=== PATIENT | female | born 1990 | race Caucasian/White ===

== ENCOUNTER 2018-08-19 14:03 | Outpatient (CLI) | payer MEDICAID, OTHER ==
[~2018-08-19] VITALS: Ht 167.6 cm; Wt 99.6 kg
[~2018-08-19 14:03] MED LIST: AMOX500C2 PO; IBUP800T48 PO
[2018-08-19 14:15] VITALS: Ht 167.6 cm; Wt 99.6 kg
[2018-08-19 14:16] VITALS: BP 110/57; PULSE 86; RESP 20
--- NOTE | 2018-08-19 17:18 | PN ---
Triage Information Date/Time Reason for visit: DFM Weeks of Gestation 36 weeks and 5 days /Para Diabetes: none Hypertention: none Objective Vital Signs Date Temp Pulse Resp B/P (MAP) Pulse Ox O2 O2 Flow FiO2 Time Delivery Rate 08/19/18 97.9 86 20 110/57 Room Air 14:16 (74) Heart Rate: 130's Contractions: None Results/Medications Imaging Results There is a single live intrauterine gestation. Cardiac activity is present with 144 beats per minute. There is a vertex presentation. The placenta is right lateral. There is no evidence of placental abruption. There is a normal amount of amniotic fluid with an ZION = 11.1 cm. Biophysical profile: movement 2/2 tone 2/2. breathing 2/2 ZION 2/2 Total 12/31 RPTAT: AA . IMPRESSION: Normal biophysical profile. Disposition: Discharge Assessment/Plan 28 years old with single intrauterine at 36 weeks and 5 days with KATELIN of 09/11/2018 complaining of decreased movement. She denies nausea, vomiting, shortness of breath, chest pain, abdominal pain, headache, visual changes, vaginal bleeding or LOF. -FHR: No sign of metabolic acidosis- Category I -Contractions: None -Ultrasound performed: Normal amniotic fluid index. Biophysical profile 8 out of 8 -During triage observation. She states baby has been active. -Symptoms and sign of labor, preeclampsia, kick count discussed with patient, she voiced understanding. All of her questions answered. -Patient was discharged home in stable condition with the appropriate discharge instructions provided. I would like patient to have close follow-up with her primary physician or outpatient clinic in 1-2 days or return to triage for worsening symptoms or any other urgent concerns. KAYLA VILLALOBOS Aug 19, 2018 17:17
--- NOTE | 2018-08-19 17:39 | TRIAGE ---
OB Triage Datetime Report Generated by CPN: 08/19/2018 17:38 Datetime: 08/19/2018 17:15 Labor Evaluation Frequency: x4 Duration (sec)2399: 40-70 Quality: Mild Pattern: Normal: <= 5 Contractions in 10 Minutes Resting Tone [place]: Relaxed Heart Rate FHR Baseline Rate: 135 Monitor Mode: External US FHR Baseline Changes: No Baseline Change Variability: Moderate 6-25 bpm Accelerations: 15X15 Decelerations: None Category: Category I Pain Assessment Pain Scale: 0 Pain Presence: None/Denies Pain Type: N/A Pain Goal: 3 Vaginal Exam Membrane Status: Intact Datetime: 08/19/2018 17:14 Comments: Dr. Hadadian here in triage, stated pt may go home Datetime: 08/19/2018 17:12 Stage of : OB Triage Datetime: 08/19/2018 16:31 Labor Evaluation Frequency: x3 Monitor Mode: External Duration (sec)2399: 40-50 Quality: Mild Pattern: Normal: <= 5 Contractions in 10 Minutes Resting Tone [place]: Relaxed Heart Rate FHR Baseline Rate: 135 Monitor Mode: External US FHR Baseline Changes: No Baseline Change Variability: Moderate 6-25 bpm Accelerations: 15X15 Decelerations: None Category: Category I Pain Assessment Pain Scale: 0 Pain Presence: None/Denies Pain Type: N/A Pain Goal: 3 Datetime: 08/19/2018 16:00 Labor Evaluation Frequency: X3 Monitor Mode: External Duration (sec)2399: 40-60 Quality: Mild Pattern: Normal: <= 5 Contractions in 10 Minutes Resting Tone [place]: Relaxed Heart Rate FHR Baseline Rate: 135 Monitor Mode: External US FHR Baseline Changes: No Baseline Change Variability: Moderate 6-25 bpm Accelerations: 15X15 Decelerations: None Category: Category I Pain Assessment Pain Scale: 0 Pain Presence: None/Denies Pain Type: N/A Pain Goal: 3 Datetime: 08/19/2018 15:19 Comments: u/s in progress Datetime: 08/19/2018 15:10 Labor Evaluation Frequency: 2-15 Monitor Mode: External Duration (sec)2399: 40-80 Quality: Mild Pattern: Normal: <= 5 Contractions in 10 Minutes Resting Tone [place]: Relaxed Heart Rate FHR Baseline Rate: 155 Monitor Mode: External US FHR Baseline Changes: No Baseline Change Variability: Moderate 6-25 bpm Accelerations: 15X15 Decelerations: None Category: Category I Comments: Dr. Wolff at bedside to review strip, and assess pt, new order to observe pt for 1.5-2 hrs prior to d/c Pain Assessment Pain Scale: 0 Pain Presence: None/Denies Pain Type: N/A Pain Goal: 3 Datetime: 08/19/2018 15:00 Comments: Dr. Wolff was informed of pt's arrival to unit with c/o decrease movement. New o rder for NST and BPP Datetime: 08/19/2018 14:20 Stage of : OB Triage Temperature Route: Oral Datetime: 08/19/2018 14:19 Stage of : OB Triage Assessment Type: Triage Maternal Assessment Level of Consciousness: Fully Conscious DTR's/Clonus: DTRs 2+; No Clonus Headache: Denies Blurred Vision: No Respiratory Effort: Unlabored; Regular Rhythm; Equal Expansion Breath Sounds, Left: Clear and Equal Breath Sounds, Right: Clear and Equal Nausea/Vomiting: Denies RUQ Epigastric Pain: Denies Lower Extremities Edema: Bilateral Lower Extremities Degree: 1+ Upper Extremities Edema: None Facial Edema: None Temperature Route: Axillary Fall Risk Assessment History of Falling: (0) No Secondary Diagnosis: (0) No Ambulatory Aid: (0) Bedrest/Nurse Assist IV Therapy: (0) No Gait: (0) Normal/Bedrest/Immobile Mental Status: (0) Oriented to Own Ability Fall Score: 0 Fall Risk Score Definition: No Risk: No action required Pain Assessment Pain Scale: 0 Pain Presence: None/Denies Pain Type: N/A Pain Goal: 3 Datetime: 08/19/2018 14:17 Time of Arrival: 08/19/2018 13:57 EGA: 36.5 Arrived By: Ambulatory Arrived From: Home Chief Complaint: Decrease movement Movement: Decreased Rupture of Membranes: Denies Vaginal Bleeding: None Vaginal Discharge: Denies Recent Sexual Intercouse: Denies Abdominal Trauma: Not Applicable Patient Complaints: None Time Provider Notified: 08/19/2018 15:01 Provider Notified: Dr. Wolff Initial Plan: SUREKHA DIMAS
== END 2018-08-19 17:35 | disposition home or self-care (01) ==
LOC: L-D 14:03 → OBT 14:03
PROVIDERS: ATTEND Obstetrics & Gynecology
DX: O36.8130 Decreased fetal movements, third trimester, not applicable or unspecified (principal); Z3A.36 36 weeks gestation of pregnancy
CPT/HCPCS: 76818; Z7500; G0463

== ENCOUNTER 2018-09-02 05:50 | Outpatient (CLI) | payer MEDICAID ==
[~2018-09-02] VITALS: Ht 165.1 cm; Wt 101.7 kg
[2018-09-02] MEDS ORDERED: PNV11TAB PO (06:26)
[2018-09-02 06:27] VITALS: BP 109/66; PULSE 84; RESP 18; Ht 165.1 cm; Wt 101.7 kg
--- NOTE | 2018-09-02 09:06 | TRIAGE ---
OB Triage Datetime Report Generated by CPN: 09/02/2018 09:06 Datetime: 09/02/2018 08:41 Stage of : OB Triage Datetime: 09/02/2018 08:37 Stage of : OB Triage Datetime: 09/02/2018 08:24 Stage of : OB Triage Datetime: 09/02/2018 08:23 Labor Evaluation Frequency: 9-10 Monitor Mode: External Duration (sec)2399: 50-60 Quality: Mild Pattern: Normal: <= 5 Contractions in 10 Minutes Resting Tone [place]: Relaxed Heart Rate FHR Baseline Rate: 125 Monitor Mode: External US Variability: Moderate 6-25 bpm Accelerations: 10X10 Decelerations: None Category: Category I Pain Assessment Pain Scale: 6 Pain Presence: Intermittent Pain Type: Cramping Pain Location: Abdomen Pain Goal: 3 Pain Relief Measures: Comfort Measures Datetime: 09/02/2018 08:19 Exam By: S LISA Datetime: 09/02/2018 07:25 Labor Evaluation Frequency: 9-10 Monitor Mode: External Duration (sec)2399: 50-60 Pattern: Normal: <= 5 Contractions in 10 Minutes Resting Tone [place]: Relaxed Heart Rate FHR Baseline Rate: 135 Monitor Mode: External US Variability: Moderate 6-25 bpm Accelerations: 10X10 Decelerations: None Category: Category I Pain Assessment Pain Scale: 8 Pain Presence: Intermittent Pain Type: Cramping Pain Location: Abdomen Pain Goal: 3 Pain Relief Measures: Comfort Measures Datetime: 09/02/2018 07:00 Labor Evaluation Frequency: 2-5 Monitor Mode: External Duration (sec)2399: 50-100 Quality: Mild Pattern: Normal: <= 5 Contractions in 10 Minutes Resting Tone [place]: Relaxed Heart Rate FHR Baseline Rate: 135 Monitor Mode: External US Variability: Moderate 6-25 bpm Accelerations: 15X15 Decelerations: None Category: Category I Datetime: 09/02/2018 06:20 Time of Arrival: 09/02/2018 05:50 EGA: 39.5 Arrived By: Ambulatory Arrived From: Home Chief Complaint: UC's Movement: Present Contractions: Regular Time Contractions Began: 09/02/2018 01:00 Contractions: Every 10 min Rupture of Membranes: Denies Vaginal Bleeding: None Vaginal Discharge: Denies Recent Sexual Intercouse: Denies Abdominal Trauma: Not Applicable Patient Complaints: Contractions Time Provider Notified: 09/02/2018 06:30 Provider Notified: Dr. Lambert Initial Plan: CEFM, VE Datetime: 09/02/2018 06:18 Vaginal Exam Dilatation (cms): 1.5 Effacement (%): 0 Station: -3 Exam By: Rosette Yap RN Membrane Status: Intact Vaginal Bleeding: None Cervix, Consistency: Moderate Cervix, Position: Posterior Presentation 'A': Unable to Assess Datetime: 09/02/2018 06:15 Stage of : OB Triage Assessment Type: Triage Maternal Assessment Level of Consciousness: Fully Conscious DTR's/Clonus: DTRs 2+; No Clonus Headache: Denies Blurred Vision: No Respiratory Effort: Unlabored; Regular Rhythm; Equal Expansion Breath Sounds, Left: Clear and Equal Breath Sounds, Right: Clear and Equal Nausea/Vomiting: Denies RUQ Epigastric Pain: Denies Facial Edema: None Temperature Route: Oral Fall Risk Assessment History of Falling: (0) No Secondary Diagnosis: (0) No Ambulatory Aid: (0) Bedrest/Nurse Assist IV Therapy: (0) No Gait: (0) Normal/Bedrest/Immobile Mental Status: (0) Oriented to Own Ability Fall Score: 0 Fall Risk Score Definition: No Risk: No action required Pain Assessment Pain Scale: 7 Pain Presence: Intermittent Pain Type: Cramping Pain Location: Abdomen Datetime: 08/19/2018 14:19 Fall Score: 0 Fall Risk Score Definition: No Risk: No action required Datetime: 08/19/2018 14:17 EGA: 37.5
--- NOTE | 2018-09-02 09:22 | PN ---
Triage Information Date/Time Reason for visit: Uterine contractions Weeks of Gestation 39 weeks and 5 days /Para Diabetes: none Hypertention: none Objective Vital Signs Date Temp Pulse Resp B/P (MAP) Pulse Ox O2 O2 Flow FiO2 Time Delivery Rate 09/02/18 97.7 84 18 109/66 Room Air 06:27 (80) Heart Rate: 140's Contractions: 6-10 Minutes Apart Disposition: Discharge Assessment/Plan 28 years old with single intrauterine at 39 weeks and 5 days complaining of uterine contractions. She states good movement. She denies nausea, vomiting, shortness of breath, chest pain, abdominal pain, headache, visual changes, vaginal bleeding or LOF. -FHR: No sign of metabolic acidosis- Category I -Contractions: Q. 6-10 minutes -Ultrasound performed: ZION 7.4 -SVE: per nurse 1.5/50/-3/cephalic cephalic/intact. No cervical changes in 2hours interval -admission for induction of labor worse since close follow-up discussed with patient and her . Both expressed understanding. She states is leaving few minutes for from hospital and is willing to go home on will back if the contraction are closer. I strongly recommend follow-up in 3 days for NST and ZION if not going to labor. -Symptoms and sign of labor, preeclampsia, kick count discussed with patient, she voiced understanding. All of her questions answered. -Patient was discharged home in stable condition with the appropriate discharge instructions provided. I would like patient to have close follow-up with her primary physician or outpatient clinic in 1-2 days or return to triage for worsening symptoms or any other urgent concerns. KAYLA VILLALOBOS Sep 02, 2018 09:22
== END 2018-09-02 08:58 | disposition home or self-care (01) ==
LOC: OBT 05:50 → L-D 05:50 → OBT 08:58
PROVIDERS: ATTEND Obstetrics & Gynecology
DX: O62.9 Abnormality of forces of labor, unspecified (principal); Z3A.39 39 weeks gestation of pregnancy
CPT/HCPCS: 76815; Z7500; G0463

== ENCOUNTER 2018-09-04 15:29 | Outpatient (CLI) | payer MEDICAID ==
[~2018-09-04] VITALS: Ht 167.6 cm; Wt 103.1 kg
[~2018-09-04 15:29] MED LIST changes: -AMOX500C2 PO; -IBUP800T48 PO; +PNV11TAB PO
[2018-09-04 15:52] VITALS: BP 117/64; PULSE 92; Ht 167.6 cm; Wt 103.1 kg
--- NOTE | 2018-09-04 16:59 | PN ---
Triage Information Date/Time Reason for visit: DFM Weeks of Gestation 39 /Para 3/2 Objective Vital Signs Date Temp Pulse Resp B/P (MAP) Pulse Ox O2 O2 Flow FiO2 Time Delivery Rate 09/04/18 97.7 92 117/64 15:52 (81) Heart Rate: 120's Contractions: None Disposition: Discharge ASHLEY ASH MD Sep 04, 2018 16:59
--- NOTE | 2018-09-04 19:24 | TRIAGE ---
OB Triage Datetime Report Generated by CPN: 09/04/2018 19:24 Datetime: 09/04/2018 16:55 Stage of : OB Triage Datetime: 09/04/2018 16:51 Stage of : OB Triage Datetime: 09/04/2018 16:40 Stage of : OB Triage Datetime: 09/04/2018 16:21 Labor Evaluation Frequency: 6-10 Monitor Mode: External Duration (sec)2399: 50-60 Quality: Mild Pattern: Normal: <= 5 Contractions in 10 Minutes Resting Tone [place]: Relaxed Heart Rate FHR Baseline Rate: 135 Monitor Mode: External US Variability: Moderate 6-25 bpm Accelerations: 10X10 Decelerations: None Category: Category I Pain Assessment Pain Scale: 0 Pain Presence: None/Denies Pain Type: N/A Pain Goal: 3 Pain Relief Measures: Comfort Measures Datetime: 09/04/2018 15:49 Stage of : OB Triage Assessment Type: Triage Maternal Assessment Level of Consciousness: Fully Conscious DTR's/Clonus: DTRs 2+; No Clonus Headache: Denies Blurred Vision: No Respiratory Effort: Unlabored; Regular Rhythm; Equal Expansion Breath Sounds, Left: Clear and Equal Breath Sounds, Right: Clear and Equal Nausea/Vomiting: Denies RUQ Epigastric Pain: Denies Facial Edema: None Temperature Route: Axillary Fall Risk Assessment History of Falling: (0) No Secondary Diagnosis: (0) No Ambulatory Aid: (0) Bedrest/Nurse Assist IV Therapy: (0) No Gait: (0) Normal/Bedrest/Immobile Mental Status: (0) Oriented to Own Ability Fall Score: 0 Fall Risk Score Definition: No Risk: No action required Labor Evaluation Frequency: 0 Monitor Mode: External Pattern: Normal: <= 5 Contractions in 10 Minutes Resting Tone [place]: Relaxed Heart Rate FHR Baseline Rate: 135 Monitor Mode: External US Variability: Moderate 6-25 bpm Decelerations: None Pain Assessment Pain Scale: 0 Pain Presence: None/Denies Pain Type: N/A Pain Goal: 3 Pain Relief Measures: Comfort Measures Datetime: 09/04/2018 15:47 Time of Arrival: 09/04/2018 15:23 EGA: 40.0 Arrived By: Ambulatory Arrived From: Home Chief Complaint: FOLLOW UP LOW ZION, IRREGULAR UC'S, DENIES BLEEDING OR LEAKING Movement: Present Contractions: Occasional Rupture of Membranes: Denies Vaginal Bleeding: None Vaginal Discharge: Denies Recent Sexual Intercouse: Denies Abdominal Trauma: Not Applicable Time Provider Notified: 09/04/2018 16:40 Provider Notified: MIHIR Initial Plan: MONITOR, BPP Datetime: 09/02/2018 06:20 EGA: 39.5 Datetime: 09/02/2018 06:15 Fall Score: 0 Fall Risk Score Definition: No Risk: No action required Datetime: 08/19/2018 14:19 Fall Score: 0 Fall Risk Score Definition: No Risk: No action required Datetime: 08/19/2018 14:17 EGA: 37.5
== END 2018-09-04 17:00 | disposition home or self-care (01) ==
LOC: OBT 15:29 → L-D 15:30 → OBT 17:00
PROVIDERS: ATTEND Obstetrics & Gynecology
DX: O36.8130 Decreased fetal movements, third trimester, not applicable or unspecified (principal); Z3A.39 39 weeks gestation of pregnancy
CPT/HCPCS: 76818; Z7500; G0463

== ENCOUNTER 2018-09-05 19:08 | Inpatient (IN) | payer MEDICAID ==
[~2018-09-05] VITALS: Ht 167.6 cm; Wt 102.5 kg
[2018-09-05 19:00] VITALS: Ht 167.6 cm; Wt 102.5 kg
[2018-09-05] MEDS ORDERED: LACTATED RINGER'S 1,000 ML IV PRN (19:57)
[2018-09-05] MEDS ORDERED: BUTORPHANOL 2 MG INJ IV PRN (20:00)
[2018-09-05] MEDS ORDERED: OXYTOCIN 30 UNITS/LR 500 ML IV PRN (20:00)
[2018-09-05] MEDS ORDERED: METHYLERGONOVINE 0.2 MG INJ IM PRN (20:00)
[2018-09-05] MEDS ORDERED: IBUPROFEN 600 MG TAB PO PRN (20:00)
[2018-09-05] MEDS ORDERED: CARBOPROST 250 MCG INJ IM PRN (20:00)
[2018-09-05] MEDS ORDERED: MISOPROSTOL 200 MCG TAB PR PRN (20:00)
[2018-09-05] MEDS ORDERED: OXYTOCIN 30 UNITS/LR 500 ML IV SCH ×2 (20:00)
[2018-09-05] MEDS ORDERED: LIDOCAINE 1% (MPF) 30 ML INJ INJ PRN (20:00)
[2018-09-05] MEDS ORDERED: AZITHROMYCIN 500MG/NS (PMX) 250 ML IVPB ONE (20:30)
[2018-09-05] MEDS: LACTATED RINGER'S 1,000 ML IV SCH (21:34)
--- NOTE | 2018-09-06 00:03 | HP ---
Date/Time of Note Date/Time of Note DATE: 09/05/18 TIME: 23:55 OB - History Hx of Present Free Text/Dictation 28y.o at 40w1d with c/o UC's 5-10min apart ,with intact membrane. Initial Exam /-2 no record is available EFM uc 2-5min CAT i tracing hx of untreated chlamydial infection GBS neg admitted for expectant management. zithromax will be given for untreated chlamydial infection. Chief Complaint: uc's Estimated Due Date: Sep 04, 2018 : 4 Para: 3 Spontaneous : 0 Therapeutic : 0 Care: Other Ultrasounds: Normal mid trimester US Obstetrical Complications: None Medical Complications: None Past Family/Social History * Past Medical, Surgical, Family and Obstetric Histories reviewed from [facility]. Blood Type: A+ Rubella: immune RPR/VDRL: Negative GBS Status: Negative HBsAG: Negative OB Admission Exam Physical Exam HEENT: WNL Heart: Rhythm Normal Lungs: Clear, Equal Abdomen: WNL Extremities: Normal Reflexes: Normal Cervical Dilatation: 3cm Effacement: 50% Station: -2 Membranes: Intact Amniotic Fluid: Unevaluable Heart Rate: 140's Accelerations: Accelerations Present Decelerations: No Decelerations Varibility: Moderate Contractions on Admission: < 5 Minutes Apart Intensity: Moderate Last 72 hours Lab Results CBC & BMP 09/05/18 21:30 OB Assessment/Plan Reason for admission: active labor Other Assessment: IUP 40w1d Plan: Expectant Management RIVKA HOLLAND MD Sep 06, 2018 00:03
--- NOTE | 2018-09-06 01:14 | TRIAGE ---
OB Triage Datetime Report Generated by CPN: 09/06/2018 01:14 Datetime: 09/06/2018 00:06 Stage of : Labor Monitor Mode: Palpation Quality: Mild Pattern: Normal: <= 5 Contractions in 10 Minutes Resting Tone [place]: Relaxed FHR Baseline Rate: 130 Monitor Mode: External US Variability: Moderate 6-25 bpm Accelerations: 15X15 Decelerations: None Category: Category I Pain Scale: 7 Pain Presence: Intermittent Pain Type: Contraction Pain Location: Abdomen; Back Pain Goal: 7 Pain Relief Measures: Comfort Measures Datetime: 09/05/2018 23:38 Stage of : Labor Frequency: 4 Monitor Mode: External Duration (sec)2399: 50-60 Quality: Mild Pattern: Normal: <= 5 Contractions in 10 Minutes Resting Tone [place]: Relaxed FHR Baseline Rate: 135 Monitor Mode: External US Variability: Moderate 6-25 bpm Accelerations: 15X15 Decelerations: None Category: Category I Pain Scale: 7 Pain Presence: Intermittent Pain Type: Contraction Pain Location: Abdomen; Back Pain Goal: 7 Pain Relief Measures: Comfort Measures Datetime: 09/05/2018 23:06 Stage of : Labor Frequency: 2-3 Monitor Mode: External Duration (sec)2399: 40-60 Quality: Mild Pattern: Normal: <= 5 Contractions in 10 Minutes Resting Tone [place]: Relaxed FHR Baseline Rate: 140 Monitor Mode: External US Variability: Moderate 6-25 bpm Accelerations: 15X15 Decelerations: None Category: Category I Pain Scale: 7 Pain Presence: Intermittent Pain Type: Contraction Pain Location: Abdomen; Back Pain Goal: 7 Pain Relief Measures: Comfort Measures Datetime: 09/05/2018 22:36 Stage of : Labor Temperature Route: Oral Frequency: 2-5 Monitor Mode: External Duration (sec)2399: 40-120 Quality: Mild Pattern: Normal: <= 5 Contractions in 10 Minutes Resting Tone [place]: Relaxed FHR Baseline Rate: 155 Monitor Mode: External US Variability: Moderate 6-25 bpm Accelerations: 15X15 Decelerations: None Category: Category II Pain Scale: 7 Pain Presence: Intermittent Pain Type: Contraction Pain Location: Abdomen; Back Pain Goal: 7 Pain Relief Measures: Comfort Measures Datetime: 09/05/2018 22:06 Stage of : Labor Frequency: 4-6 Monitor Mode: External Duration (sec)2399: 60-80 Quality: Mild Pattern: Normal: <= 5 Contractions in 10 Minutes Resting Tone [place]: Relaxed Interventions: Side to Side FHR Baseline Rate: 135 Monitor Mode: External US Variability: Moderate 6-25 bpm Accelerations: Prolonged Decelerations: None Category: Category I Pain Scale: 7 Pain Presence: Intermittent Pain Type: Contraction Pain Location: Abdomen; Back Pain Goal: 7 Pain Relief Measures: Comfort Measures Datetime: 09/05/2018 21:54 Interventions: Side to Side Datetime: 09/05/2018 21:51 Dilatation (cms): 3.0 Effacement (%): 50 Station: -2 Exam By: Christos FOSTER RN Membrane Status: Intact Vaginal Bleeding: Normal Show Cervix, Consistency: Firm Datetime: 09/05/2018 21:37 Stage of : Labor Frequency: 1-4 Monitor Mode: External Duration (sec)2399: 40-70 Quality: Mild Pattern: Normal: <= 5 Contractions in 10 Minutes Resting Tone [place]: Relaxed FHR Baseline Rate: 130 Monitor Mode: External US Variability: Moderate 6-25 bpm Accelerations: 15X15 Decelerations: None Category: Category I Pain Scale: 7 Pain Presence: Intermittent Pain Type: Contraction Pain Location: Abdomen; Back Pain Goal: 7 Pain Relief Measures: Comfort Measures Datetime: 09/05/2018 21:05 Stage of : Labor Frequency: 3-5 Monitor Mode: External Duration (sec)2399: 30-50 Quality: Mild Pattern: Normal: <= 5 Contractions in 10 Minutes Resting Tone [place]: Relaxed FHR Baseline Rate: 130 Monitor Mode: External US Variability: Moderate 6-25 bpm Accelerations: 15X15 Decelerations: None Category: Category I Pain Scale: 7 Pain Presence: Intermittent Pain Type: Contraction Pain Location: Abdomen; Back Pain Goal: 7 Pain Relief Measures: Comfort Measures Datetime: 09/05/2018 20:35 Stage of : Labor Assessment Type: Admission Assessment Time of Arrival: 09/05/2018 19:00 EGA: 40.1 Arrived By: Ambulatory Arrived From: Home Chief Complaint: c/o uterine contractions Movement: Present Contractions: Regular Time Contractions Began: 09/05/2018 16:30 Contractions: 5-10 MINUTES Rupture of Membranes: Denies Vaginal Bleeding: None Vaginal Discharge: Denies Recent Sexual Intercouse: Denies Abdominal Trauma: Not Applicable Patient Complaints: Contractions Time Provider Notified: 09/05/2018 19:45 Provider Notified: MIHIR Initial Plan: EFM, SVE Level of Consciousness: Fully Conscious DTR's/Clonus: DTRs 2+; No Clonus Headache: Denies Blurred Vision: No Respiratory Effort: Unlabored; Regular Rhythm; Equal Expansion Breath Sounds, Left: Clear and Equal Breath Sounds, Right: Clear and Equal Nausea/Vomiting: Denies RUQ Epigastric Pain: Denies Lower Extremities Edema: Bilateral Lower Extremities Degree: TRACE Upper Extremities Edema: None Degree: None Facial Edema: None Temperature Route: Oral History of Falling: (0) No Secondary Diagnosis: (0) No Ambulatory Aid: (0) Bedrest/Nurse Assist IV Therapy: (0) No Gait: (0) Normal/Bedrest/Immobile Mental Status: (0) Oriented to Own Ability Fall Score: 0 Fall Risk Score Definition: No Risk: No action required Monitor Mode: External Monitor Mode: External US Pain Scale: 7 Pain Presence: Intermittent Pain Type: Contraction Pain Location: Abdomen; Back Pain Goal: 7 Datetime: 09/05/2018 19:26 Dilatation (cms): 3.0 Effacement (%): 50 Station: -2 Exam By: homer odell RN Membrane Status: Intact Vaginal Bleeding: Normal Show Cervix, Consistency: Soft Cervix, Position: Posterior Datetime: 09/05/2018 19:17 Stage of : OB Triage Assessment Type: Triage Level of Consciousness: Fully Conscious DTR's/Clonus: DTRs 2+; No Clonus Headache: Denies Blurred Vision: No Respiratory Effort: Unlabored; Regular Rhythm; Equal Expansion Breath Sounds, Left: Clear and Equal Breath Sounds, Right: Clear and Equal Nausea/Vomiting: Denies RUQ Epigastric Pain: Denies Facial Edema: None Temperature Route: Oral History of Falling: (0) No Secondary Diagnosis: (0) No Ambulatory Aid: (0) Bedrest/Nurse Assist IV Therapy: (0) No Gait: (0) Normal/Bedrest/Immobile Mental Status: (0) Oriented to Own Ability Fall Score: 0 Fall Risk Score Definition: No Risk: No action required Pain Scale: 7 Pain Presence: Intermittent Pain Type: Contraction Pain Location: Abdomen Pain Goal: 2 Pain Relief Measures: Comfort Measures Datetime: 09/05/2018 19:15 Monitor Mode: External Monitor Mode: External US Datetime: 09/04/2018 15:49 Fall Score: 0 Fall Risk Score Definition: No Risk: No action required Datetime: 09/04/2018 15:47 EGA: 40.0 Datetime: 09/02/2018 06:20 EGA: 39.5 Datetime: 09/02/2018 06:15 Fall Score: 0 Fall Risk Score Definition: No Risk: No action required Datetime: 08/19/2018 14:19 Fall Score: 0 Fall Risk Score Definition: No Risk: No action required Datetime: 08/19/2018 14:17 EGA: 37.5
[2018-09-06] MEDS: LACTATED RINGER'S 1,000 ML IV SCH ×4 (04:19→21:20)
[2018-09-06] MEDS ORDERED: OXYTOCIN 30 UNITS/LR 500 ML IV SCH ×2 (12:10→23:57)
[2018-09-06] MEDS ORDERED: FENTAnyl 2MCG/ML-ROPIV 0.2% 100 ML ONE (12:43)
--- NOTE | 2018-09-06 12:51 | PREAC ---
Date/Time of Note Date/Time of Note DATE: 09/06/18 TIME: 12:50 Anesthesia Eval and Record Evaluation Time Pre-Procedure Interview DATE: 09/06/18 TIME: 12:50 Age 28 Sex female NPO: 8 hrs Preoperative diagnosis Labor Pain Planned procedure Labor Epidural Past Medical History Past Medical History: Includes Heme: Anemia : : (4), Para:, Gestational age: (40) Surgery & Anesthesia Issues No known issue Meds Anticoagulation: No Beta Elvia within 24 hr: No Reason Beta Elvia not given: Pt. not on B-Elvia Reported Medications [id number] ( 19) 1 Each Tablet, 1 TAB PO DAILY, TAB 09/02/18 Current Medications Lactated Ringer's 1,000 ml @ 125 mls/hr Q8H IV Last administered on 09/06/18at 12:16; Admin Dose 125 MLS/HR; Start 09/05/18 at 19:57 Butorphanol Tartrate (Stadol) 2 mg Q2H PRN IV .PAIN; Start 09/05/18 at 20:00 Lidocaine (Xylocaine 1% (Mpf)) 30 ml ONCE PRN INJ .EPISIOTOMY; Start 09/05/18 at 20:00 Oxytocin/Lactated Ringer's 500 ml @ 500 mls/hr ONCE POST IV ; Start 09/05/18 at 20:00 Oxytocin/Lactated Ringer's 500 ml @ 125 mls/hr POST IV ; Start 09/05/18 at 20:00 Ibuprofen (Motrin) 600 mg ONCE PRN PO .PAIN 1-5; Start 09/05/18 at 20:00 Lactated Ringer's 1,000 ml @ 2,000 mls/hr Q30M PRN IV .ANESTHESIA; Start 09/05/18 at 19:57 Oxytocin/Lactated Ringer's 500 ml @ 0 mls/hr ONCE PRN IV .VAGINAL BLEEDING; Start 09/05/18 at 20:00 Methylergonovine Maleate (Methergine) 0.2 mg ONCE PRN IM .VAGINAL BLEEDING; Start 09/05/18 at 20:00 Carboprost Tromethamine (Hemabate) 250 mcg ONCE PRN IM .VAGINAL BLEEDING; Start 09/05/18 at 20:00 Misoprostol (Cytotec) 1,000 mcg ONCE PRN HI .VAGINAL BLEEDING; Start 09/05/18 at 20:00 Azithromycin 250 mg/Sodium Chloride 250 ml @ 250 mls/hr Q24H IVPB ; Start 09/06/18 at 20:30 Oxytocin/Lactated Ringer's 500 ml @ 0 mls/hr FOR AUGMENTATION IV ; Start 09/06/18 at 12:10 Meds reviewed: Yes Allergies Coded Allergies: No Known Allergy (Unverified , 09/05/18) Allergies Reviewed: Yes Labs/Studies Labs Reviewed: Reviewed by anesthesiologist Result Diagram: 09/05/18 2130 Laboratory Tests 09/05/18 21:30 Blood Bank Test 09/05/18 21:30 Antibody Screen NEGATIVE Blood Type A POSITIVE Rh Immune Globulin Candidate NO test: Positive Studies: ECG (n/a), CXR (n/a) Pre-procedure Exam Airway: Adequate mouth opening, Adequate thyromental dist Mallampati: Mallampati II Teeth: Normal Lung: Normal Heart: Normal ASA Physical Status ASA physical status: 2 Emergency: None Planned Anesthetic Neuraxial: Epidural Planned Pain Management Epidural Pre-operative Attestations Prior to commencing anesthesia and surgery, the patient was re-evaluated, there was verification of: *The patient's identity *The results of appropriate recent lab work and preoperative vital signs *The above evaluation not changing prior to induction *Anesthetic plan, risk benefits, alternative and complications discussed with patient/family; questions answered; patient/family understands, accepts and wishes to proceed. LASHAE FELIZ MD Sep 06, 2018 12:51
--- NOTE | 2018-09-06 12:53 | PAC ---
Date/Time of Note Date/Time of Note DATE: 09/06/18 TIME: 12:52 Post-Anesthesia Notes Post-Anesthesia Note Last documented vital signs T: 98.1 Activity: WNL Respiratory function: WNL Cardiovascular function: WNL Mental status: Baseline Pain reasonably controlled: Yes Hydration appropriate: Yes Nausea/Vomiting absent: Yes LASHAE FELIZ MD Sep 06, 2018 12:53
[2018-09-06] MEDS ORDERED: NALOXONE (0.4 MG/ML) INJ IV PRN (13:00)
[2018-09-06] MEDS ORDERED: FENTAnyl 2MCG/ML-ROPIV 0.2% 100 ML BAG EPI SCH (13:00)
[2018-09-06] MEDS ORDERED: AZITHROMYCIN 250 MG in SOD CHLORIDE 0.9% 250 ML IVPB SCH (20:30)
[2018-09-06] MEDS ORDERED: ONDANSETRON 4 MG INJ IV PRN (21:00)
--- NOTE | 2018-09-06 23:56 | LDN ---
Date/Time of Note Date/Time of Note DATE: 09/06/18 TIME: 23:54 Delivery Summary Weeks of Gestation Term gestation Placenta Delivered: Spontaneously Meconium: Light Episiotomy: No Laceration repair: First-degree laceration repaired with 3-0 chromic Anesthesia type: Epidural Estimated blood loss: 100 Sponge & Needle done & correct: Yes All needle counts correct: Yes Any foreign bodies felt in the: No Delivery Information Sex Infant Sex: male Apgars 1 Minute: 9 5 Minute: 9 Suctioning Nose & mouth suctioned at lola: Yes Delee suction performed: No Umbilical Cord Umbilical cord with: 3 Vessels Cord presentations: nuchal cord (X1 around the neck manually reduced) Cord Blood was obtained: Yes Mother & Baby Disposition Disposition Baby's weight 8 pounds/ 3635 g Mom & Baby to Maternity; Good: Yes Baby to NICU: No Copies To: CC: ASHLEY ASH MD ; BRIA SHIRLEY MD Sep 06, 2018 23:56
[2018-09-07] MEDS ORDERED: DIBUCAINE 1% 30 GM OINT TOP PRN
[2018-09-07] MEDS ORDERED: BENZOCAINE 20% 56 ML SPRAY TOP PRN
[2018-09-07] MEDS ORDERED: MISOPROSTOL 200 MCG TAB PR PRN
[2018-09-07] MEDS ORDERED: OXYTOCIN 30 UNITS/LR 500 ML IV PRN
[2018-09-07] MEDS ORDERED: WITCH HAZEL/GLYCERIN PAD PR PRN
[2018-09-07] MEDS ORDERED: SENNA/DOCUSATE NA (8.6MG/50MG) TAB PO PRN
[2018-09-07] MEDS ORDERED: MAGNESIUM HYDROXIDE 30ML CUP PO PRN
[2018-09-07] MEDS ORDERED: ACETAMINOPHEN 325 MG TAB PO PRN ×2
[2018-09-07] MEDS ORDERED: CARBOPROST 250 MCG INJ IM PRN
[2018-09-07] MEDS ORDERED: ONDANSETRON 4 MG INJ IV PRN
[2018-09-07] MEDS ORDERED: LANOLIN HPA 1 PKT TOP PRN
[2018-09-07] MEDS: METHYLERGONOVINE 0.2 MG INJ IM PRN ×2 (00:49→01:14)
[2018-09-07] MEDS ORDERED: DIPHENOXYLATE/ATROPINE 5 ML CUP PO ONE (03:00)
[2018-09-07] MEDS ORDERED: DIPHENOXYLATE/ATROPINE 5 ML CUP PO SCH (03:35)
--- NOTE | 2018-09-07 03:48 | QN ---
Documentation Comment Procedure note for manual evacuation of uterus I was called to evaluate the patient for hemorrhage Patient received oxytocin x2 bags Methergine x2 doses Cytotec 1000 mcg per rectum Hemabate x1 dose Jesus catheter was placed After administration of Stadol IV manual extraction of blood clots were proceeded from the lower uterine segment Lower uterine segment initially boggy but after removal of blood clots and bimanual massage started firming up Total blood loss including the delivery 700 cc Total I's and O's after delivery 1300 cc in/1000 cc out Intake and Output 09/07/18 0606:59 IntakeIntake Total 3750 ml OutputOutput Total 3350 ml BalanceBalance 400 ml IntakeIntake IV Total 3750 ml OutputOutput Urine Total 3350 ml Hematology - 72 Hrs Test 09/05/18 21:30 09/07/18 03:57 Hematocrit 33.2 % (37.0-47.0) L 33.1 % (37.0-47.0) L Hemoglobin 10.3 g/dl (12.0-16.0) L 10.3 g/dl (12.0-16.0) L Mean Corpuscular 24.1 pg (29.0-33.0) L 24.3 pg (29.0-33.0) L Hemoglobin Mean Corpuscular 31.0 g/dl (32.0-37.0) L 31.1 g/dl (32.0-37.0) L Hemoglobin Concent Mean Corpuscular Volume 77.8 fl (82.0-101.0) L 78.1 fl (82.0-101.0) L Mean Platelet Volume 11.0 fl (7.4-10.4) H 11.5 fl (7.4-10.4) H Platelet Count 307 10^3/UL (140-415) 287 10^3/UL (140-415) Red Blood Count 4.27 10^6/ul (4.20-5.40) 4.24 10^6/ul (4.20-5.40) Red Cell Distribution 16.9 % (11.5-14.5) H 16.6 % (11.5-14.5) H Width White Blood Count 11.9 10^3/ul (4.8-10.8) 16.7 10^3/ul (4.8-10.8) H #H Stat CBC as noted above Patient received Ancef 2 g x1 dose Continue with Zithromax IV for total 1 g -treatment for positive chlamydia Keep Jesus in place until noon today Repeat CBC tomorrow a.m. Patient tolerated the procedure well Patient stable and doing well BRIA SHIRLEY MD Sep 07, 2018 03:48
[2018-09-07] MEDS ORDERED: CEFAZOLIN 2 GM/50 ML (PMX) 50 ML IVPB ONE (06:00)
[2018-09-07] MEDS: LACTATED RINGER'S 1,000 ML IV* SCH ×4 (06:07→23:57)
[2018-09-07] MEDS: IBUPROFEN 600 MG TAB PO PRN ×2 (06:30→12:04)
--- NOTE | 2018-09-07 08:21 | DS ---
Date/Time of Note Date/Time of Note DATE: 09/07/18 TIME: 08:21 Discharge Summary Admission/Discharge Info Admit Date/Time Sep 05, 2018 at 19:48 Discharge Date/Time Discharge Diagnosis term Patient Condition: Stable Hospital Course unremarkable Home Meds Reported Medications [id number] ( 19) 1 Each Tablet, 1 TAB PO DAILY, TAB 09/02/18 Primary Care Provider Not On Staff Doctor Pending Labs Laboratory Tests Test 09/07/18 03:57 09/07/18 07:19 White Blood Count 16.7 10^3/ul (4.8-10.8) Red Blood Count 4.24 10^6/ul (4.20-5.40) Hemoglobin 10.3 g/dl (12.0-16.0) Hematocrit 33.1 % (37.0-47.0) Mean Corpuscular Volume 78.1 fl (82.0-101.0) Mean Corpuscular Hemoglobin 24.3 pg (29.0-33.0) Mean Corpuscular 31.1 g/dl (32.0-37.0) Hemoglobin Concent Red Cell Distribution Width 16.6 % (11.5-14.5) Platelet Count 287 10^3/UL (140-415) Mean Platelet Volume 11.5 fl (7.4-10.4) Immature Granulocytes % 0.500 % (0.001-0.429) Neutrophils % 86.3 % (39.0-77.0) Lymphocytes % 8.1 % (15.0-51.0) Monocytes % 4.7 % (0.0-11.0) Eosinophils % 0.1 % (0.0-7.0) Basophils % 0.3 % (0.0-2.0) Nucleated Red Blood Cells % 0.0 /100WBC (0.0-0.0) Immature Granulocytes # 0.090 10^3/ul (0.0-0.031) Neutrophils # 14.4 10^3/ul (1.6-7.5) Lymphocytes # 1.4 10^3/ul (0.8-2.9) Monocytes # 0.8 10^3/ul (0.3-0.9) Eosinophils # 0.0 10^3/ul (0.0-0.5) Basophils # 0.1 10^3/ul (0.0-0.1) Nucleated Red Blood Cells # 0.0 10^3/ul (0.0-0.0) Lab Scanned Report REFERENCE LAB [id number] ASHLEY ASH MD Sep 07, 2018 08:21
[2018-09-07 09:00] VITALS: BP 97/50; PULSE 73; RESP 18
[2018-09-07 13:00] VITALS: BP 98/48; PULSE 70; RESP 16
[2018-09-07 15:45] VITALS: BP 103/55; PULSE 84; RESP 18
[2018-09-07 20:00] VITALS: BP 100/63; PULSE 89; RESP 18
[2018-09-07] MEDS ORDERED: AZITHROMYCIN 250 MG in SOD CHLORIDE 0.9% 250 ML IVPB SCH (20:30)
[2018-09-08] MEDS: IBUPROFEN 600 MG TAB PO PRN (00:47)
[2018-09-08 04:10] VITALS: BP 95/55; PULSE 70; RESP 18
[2018-09-08] MEDS: LACTATED RINGER'S 1,000 ML IV* SCH (07:57)
--- NOTE | 2018-09-09 16:20 | DELSUM ---
Delivery Summary A-C Datetime Report Generated by CPN: 09/09/2018 16:20 DELIVERY PERSONNEL Hot Box Operator: Joshua, Niesha MATERNAL INFORMATION Delivery Anesthesia: Epidural Medications in Delivery: PITOCIN 30 UNITS Delivery QBL (ml): 100 Placenta Cultured: Yes Maternal Complications: None LABOR SUMMARY EDC: 09/04/2018 00:00 No. Babies in Womb: 1 Attempted: No Labor Anesthesia: Epidural LABOR INFORMATION Reason for Induction: Not Applicable Onset of Labor: 09/05/2018 16:30 Complete Dilatation: 09/06/2018 23:15 Oxytocin: Augmentation Group B Beta Strep: Negative Antibiotics # of Doses: X2 Antibiotics Time of Last Dose: 09/06/2018 20:48 Steroids Given: None Reason Steroids Not Administered: Not Applicable MEMBRANES Membranes Rupture Method: Spontaneous Rupture of Membranes: 09/06/2018 18:20 Length of Rupture (hr): 5.00 Amniotic Fluid Color: Light Meconium Amniotic Fluid Amount: Small Amniotic Fluid Odor: None STAGES OF LABOR Stage 1 hr: 30 Stage 1 min: 45 Stage 2 hr: 0 Stage 2 min: 5 Stage 3 hr: 0 Stage 3 min: 3 Total Time in Labor hr: 30 Total Time in Labor min: 53 VAGINAL DELIVERY Episiotomy: None Laceration Extension: First Degree Laceration Type: Perineal Laceration Repair: Yes Initial Vag Sponge Count: 10 Final Vag Sponge Count: 10 Initial Vag Sharps Count: 1 Final Vag Sharps Count: 3 Sponge Count Correct: Yes; Vaginal Sweep Performed Sharps Count Correct: Yes BABY A INFORMATION Infant Delivery Date/Time: 09/06/2018 23:20 Method of Delivery: Vaginal Born in Route : No : N/A Forceps: N/A Vacuum Extraction: N/A Shoulder Dystocia : N/A SHOULDER DYSTOCIA BABY A Infant Delivery Date/Time: 09/06/2018 23:20 PRESENTATION/POSITION BABY A Presentation: Cephalic Cephalic Presentation: Vertex Vertex Position: Left Occipital Anterior Breech Presentation: N/A PLACENTA INFORMATION BABY A Placenta Delivery Time : 09/06/2018 23:23 Placenta Method of Delivery: Expressed Placenta Status: Delivered SCORES BABY A Heart Rate 1 min: >100 bpm Resp Effort 1 min: Good Cry Reflex Irritability 1 min: Cough/Sneeze/Pulls Away Muscle Tone 1 min: Active Motion Color 1 min: Body [place], Extremit Blue Resuscitation Effort 1 min: Tactile Stimulation SCORE 1 MIN: 9 Heart Rate 5 min: >100 bpm Resp Effort 5 min: Good Cry Reflex Irritability 5 min: Cough/Sneeze/Pulls Away Muscle Tone 5 min: Active Motion Color 5 min: Body [place], Extremit Blue Resuscitation Effort 5 min: Tactile Stimulation SCORE 5 MIN: 9 INFANT INFORMATION BABY A Gestational Age at Delivery: 40.2 Gestational Status: Full Term- 39- 40.6 Weeks Outcome : Liveborn Infant Condition : Stable Sex: Male IDENTIFICATION/MEDS BABY A ID Band Number: [id number] ID Band Location: Right Leg; Left Arm Sensor Applied: Yes Sensor Number: [id number] Sensor Location : Cord Clamp Vitamin K Given : Not Given Erythromycin Given: Not Given WEIGHT/LENGTH BABY A Birthweight (gm): 3635 Weight (lb): 8 Weight (oz): 0 Infant Length (in): 19.25 Infant Length (cm): 48.90 CORD INFORMATION BABY A No. Cord Vessels: 3 Nuchal Cord : Around Neck x1, Tight Cord Blood Taken: Yes Infant Suction: Mouth; Nose ASSESSMENT BABY A Infant Complications: Multiple Variable Decels Physical Findings at Delivery: Within Normal Limits Respirations: Appears Normal Air Conditioning Installer Supervisor/ALS Called : No Infant Care By: LINSEY MILLER Transferred To: Remains with Mother
== END 2018-09-08 16:20 | disposition home or self-care (01) | DRG 768 ==
LOC: OBT 19:08 → L-D 19:08 → OBT 19:48 → L-D 19:48 → PP1 09-07 08:57
PROVIDERS: ADMIT Obstetrics & Gynecology; ATTEND Obstetrics & Gynecology
PROC: 10E0XZZ Delivery of Products of Conception, External Approach (ICD-10-PCS; principal; 2018-09-06)
PROC: 0HQ9XZZ Repair Perineum Skin, External Approach (ICD-10-PCS; 2018-09-06)
PROC: 0W3R7ZZ Control Bleeding in Genitourinary Tract, Via Natural or Artificial Opening (ICD-10-PCS; 2018-09-07)
PROC: 0UC97ZZ Extirpation of Matter from Uterus, Via Natural or Artificial Opening (ICD-10-PCS; 2018-09-07)
DX: O70.0 First degree perineal laceration during delivery (principal); O69.81X0 Labor and delivery complicated by cord around neck, without compression, not applicable or unspecified; O72.1 Other immediate postpartum hemorrhage; Z37.0 Single live birth; Z3A.40 40 weeks gestation of pregnancy
CPT/HCPCS: 80307; 85025; 85610; 85730; 86592; 86850; 86900; 86901; 87340; 88307; 99464; A4310; G0463; J0456; J0595; J0690; J2210; J2405; J2590; J3010; J7050; J7120